=== PATIENT | female | born 1990 | race Two or more races ===

== ENCOUNTER 2023-05-25 17:56 | Emergency (ER) | payer SELFPAY ==
[~2023-05-25] VITALS: Ht 177.8 cm; Wt 165.0 kg
[2023-05-25 18:09] VITALS: BP 112/90; PULSE 66; RESP 16; TEMP 98.9; O2SAT 100
== END 2023-05-25 19:04 | disposition left against medical advice (07) ==
LOC: ER 17:56
DX: Z53.21 Procedure and treatment not carried out due to patient leaving prior to being seen by health care provider (principal)

== ENCOUNTER 2025-01-09 06:48 | Emergency (ER) | payer OTHER ==
[~2025-01-09] VITALS: Ht 177.8 cm; Wt 99.0 kg
[2025-01-09 07:03] VITALS: O2SAT 99
[2025-01-09] MEDS: IBUPROFEN 600MG TABLET PO ONE (07:33)
[2025-01-09 07:46] LABS: BASOPHILS % 0.9 % (0.0-2.0); DIFFERENTIAL COMMENT 0; EOSINOPHILS % 5.5 % (0.0-5.0); HEMATOCRIT. 34.1 % (36.0-48.0); LYMPHOCYTES % 33.5 % (20.0-50.0); MEAN CORPUSCULAR HEMOGLOBIN 25.7 pg (28.0-32.0); MEAN CORPUSCULAR HGB CONC 32.2 g/dL (31.0-37.0); MEAN CORPUSCULAR VOLUME 79.9 fL (81.0-99.0); MEAN PLATELET VOLUME 8.1 fl (7.4-10.4); NEUTROPHILS % 52.1 % (40.0-76.0); PLATELET 330 x1000/uL (130-400); RED BLOOD CELL COUNT 4.27 mill/uL (4.2-5.4); RED CELL DISTRIBUTION WIDTH 16.5 % (11.6-14.6); WHITE BLOOD COUNT 9.6 x1000/uL (4.5-11.0)
[2025-01-09 08:23] LABS: CHLORIDE 105 mEq/L (98-107); POTASSIUM 3.9 mEq/L (3.5-5.1); SODIUM 140 mEq/L (136-145)
[2025-01-09 08:24] LABS: CARBON DIOXIDE 27 mEq/L (21-32)
[2025-01-09 08:25] LABS: CALCIUM 9.3 mg/dL (8.7-10.4)
[2025-01-09 08:29] LABS: CREATININE 0.8 mg/dL (0.6-1.0); GLUCOSE 111 mg/dL (70-105); UREA NITROGEN BLOOD 13 mg/dL (9-23)
[2025-01-09 08:36] LABS: TROPONIN I HIGH SENSITIVITY < 4 ng/L (3.0-34)
[2025-01-09] MEDS ORDERED: IBUP-2029 MT (08:41)
[2025-01-09 09:09] VITALS: BP 136/51; PULSE 60; RESP 18; O2SAT 100
== END 2025-01-09 09:10 | disposition home or self-care (01) ==
LOC: ER 06:48
DX: R07.89 Other chest pain (principal); Z79.899 Other long term (current) drug therapy
CPT/HCPCS: 36415; 71045; 80048; 81025; 84484; 85025; 93005; 99285

== ENCOUNTER 2025-01-25 22:57 | Emergency (ER) | payer MEDICAID, OTHER ==
[~2025-01-25] VITALS: Ht 177.8 cm; Wt 160.7 kg
[~2025-01-25 22:57] MED LIST: IBUP-2029 MT
[2025-01-25 23:41] VITALS: O2SAT 98
[2025-01-25 23:48] VITALS: TEMP 36.8
[2025-01-26] MEDS ORDERED: DICL100G58 TP (00:58)
[2025-01-26] MEDS: KETOROLAC 30MG/ML VIAL IM ONE (01:36)
[2025-01-26 01:46] VITALS: BP 146/69; PULSE 76; RESP 16; O2SAT 100
== END 2025-01-26 02:12 | disposition home or self-care (01) ==
LOC: ER 22:57
DX: S83.92XA Sprain of unspecified site of left knee, initial encounter (principal); M17.12 Unilateral primary osteoarthritis, left knee; E28.2 Polycystic ovarian syndrome; X58.XXXA Exposure to other specified factors, initial encounter; Y93.89 Activity, other specified; Y92.89 Other specified places as the place of occurrence of the external cause; Y99.8 Other external cause status
CPT/HCPCS: 99283; 29505; 73562; 96372; J1885

== ENCOUNTER 2025-07-06 00:35 | Emergency (ER) | payer MEDICAID ==
[~2025-07-06] VITALS: Ht 157.5 cm; Wt 175.3 kg
[~2025-07-06 00:35] MED LIST changes: +DICL100G58 TP; +IBUP-1455 MT; -IBUP-2029 MT
[2025-07-06] MEDS: PREDNISONE 20MG TABLET PO ONE (02:10)
[2025-07-06 02:26] VITALS: PULSE 72; RESP 20; O2SAT 96
[2025-07-06] MEDS: ALBUTEROL (0.083%) 2.5MG/3ML NEB HHN ONE (02:26)
[2025-07-06] MEDS ORDERED: AZIT250T12 MT (02:49)
[2025-07-06] MEDS ORDERED: P50 MT (02:49)
[2025-07-06] MEDS ORDERED: ALBU18HF2 IH (02:49)
[2025-07-06 03:16] VITALS: BP 167/93; PULSE 73; RESP 14; TEMP 36.8; O2SAT 98
== END 2025-07-06 03:20 | disposition home or self-care (01) ==
LOC: ER 00:35
DX: R05.9 Cough, unspecified (principal); R09.81 Nasal congestion; R06.02 Shortness of breath; R06.2 Wheezing; Z79.52 Long term (current) use of systemic steroids; Z87.891 Personal history of nicotine dependence
CPT/HCPCS: 81025; 71045; 94640; 93005; 98960; 99283; J7512; Z7610 ×3; 94070; 94664

== ENCOUNTER 2025-08-12 01:42 | Emergency (ER) | payer MEDICAID ==
[~2025-08-12] VITALS: Ht 177.8 cm; Wt 165.0 kg
[~2025-08-12 01:42] MED LIST changes: +ALBU18HF2 IH; +AZIT250T12 MT; +P50 MT
[2025-08-12 01:47] VITALS: O2SAT 100
[2025-08-12 02:13] VITALS: BP 139/88; PULSE 71; RESP 18; TEMP 36.8; O2SAT 100
== END 2025-08-12 02:52 | disposition left against medical advice (07) ==
LOC: ER 01:57
DX: I10 Essential (primary) hypertension (principal)
CPT/HCPCS: 99281

== ENCOUNTER 2025-09-11 04:43 | Emergency (ER) | payer MEDICAID ==
[~2025-09-11] VITALS: Ht 177.8 cm; Wt 156.6 kg
[2025-09-11 04:54] VITALS: O2SAT 98
[2025-09-11] MEDS ORDERED: NAPR-1176 MT (05:38)
[2025-09-11] MEDS ORDERED: HYDR-4001 MT (05:38)
[2025-09-11] MEDS: KETOROLAC 30MG/ML VIAL IM ONE (05:39)
[2025-09-11] MEDS: HYDROCODONE/ACETAMINOPHEN 5/325MG TABLET PO ONE (05:39)
[2025-09-11 06:16] VITALS: BP 121/58; PULSE 80; RESP 16; TEMP 36.6; O2SAT 99
== END 2025-09-11 06:21 | disposition home or self-care (01) ==
LOC: ER 04:43
DX: M25.562 Pain in left knee (principal); Z79.899 Other long term (current) drug therapy
CPT/HCPCS: 99283; 73562; 96372; J1885; A6449